=== PATIENT | female | born 1975 | race African-American/Black ===

== ENCOUNTER 2019-02-21 09:43 | Observation (INO) ==
[2019-02-21] MEDS ORDERED: ASPIRIN PO ONE (10:27)
--- NOTE | 2019-02-21 10:45 | Diag Imaging Result Doc PS360 ---
EXAM: CHEST-1 VIEW 02/21/2019 HISTORY: CP TECHNIQUE: AP portable upright at 1035 COMMENT: The inspiration is less optimal than on 07/05/2018. Considering differences in projection and inspiration there has been no significant change. The heart size appears slightly enlarged. IMPRESSION: Borderline cardiomegaly. Electronically signed by Dick Davis 02/21/2019 10:42 AM
--- NOTE | 2019-02-21 10:46 | EKG Report ---
Test Performed on : 02/21/2019 09:46:42 AM Test Reason : CP Blood Pressure : / mmHG Vent. Rate : 102 BPM Atrial Rate : 102 BPM P-R Int : 162 ms QRS Dur : 092 ms QT Int : 374 ms P-R-T Axes : 049 -04 021 degrees QTc Int : 487 ms Sinus tachycardia. Possible Left atrial enlargement Borderline ECG When compared with ECG of 27-OCT-2018 15:49, No significant change was found Unconfirmed Result
[2019-02-21] MEDS ORDERED: NITROGLYCERIN TOP ONE (10:47)
[2019-02-21 11:34] LABS: BASO# 0.04 X1000 (0.0-0.2); BASO% 0.4 % (0.0-0.8); EOS# 0.05 X1000 (0.0-0.7); EOS% 0.5 % (0.0-10.0); HEMOGLOBIN 12.1 g/dL (12.0-16.0); IMM GRAN# 0.02 X1000 (0.0-0.04); IMM GRAN% 0.2 % (0.0-0.5); LYMPH# 3.06 X1000 (1.2-3.4); LYMPH% 32.4 % (20.5-51.1); MCH 30.5 PG (27-31); MCV 98.2 FL (81-99); MONO# 0.92 X1000 (0.11-0.59); MONO% 9.7 % (1.7-9.3); MPV 10.9 FL (7.4-10.4); NEUT# 5.36 X1000 (1.4-6.5); NEUT% 56.8 % (42.2-75.2); PLT 230 X1000 (130-400); RBC 3.97 XMIL (4.2-5.4); WBC 9.45 X1000 (4.8-10.8)
[2019-02-21 11:40] LABS: INR 0.95; PROTIME 12.8 Seconds (11.0-16.0)
[2019-02-21 11:41] LABS: PTT 29.4 Seconds (22.3-41.8)
[2019-02-21 11:53] LABS: AGAP 10; CHLORIDE 106 mmol/L (98-107); POTASSIUM 3.9 mmol/L (3.5-5.1); SODIUM 144 mmol/L (136-145); TCO2 28 mmol/L (25-35)
[2019-02-21 11:54] LABS: ALB/GLOB RATIO 1.4; ALBUMIN 4.1 g/dL (3.5-5.0); ALKALINE PHOSPHATASE 92 U/L (32-104); BUN 9 mg/dL (8-22); CALCIUM 9.6 mg/dL (8.8-10.2); COSMO 284; CREATININE 0.9 mg/dL (0.5-0.9); ESTIMATED GFR > 60; GLUCOSE 75 mg/dL (70-104); GOT 21 U/L (10-30); GPT 11 U/L (10-36); TOTAL BILIRUBIN 0.35 mg/dL (0.20-1.00); TOTAL PROTEIN 7.1 g/dL (6.3-8.3)
[2019-02-21] MEDS ORDERED: MORPHINE IV ONE (12:26)
--- NOTE | 2019-02-21 13:40 | EKG Report ---
Test Performed on : 02/21/2019 1:35:03 PM Test Reason : CP Blood Pressure : / mmHG Vent. Rate : 092 BPM Atrial Rate : 092 BPM P-R Int : 166 ms QRS Dur : 090 ms QT Int : 398 ms P-R-T Axes : 050 -05 017 degrees QTc Int : 492 ms Sinus rhythm. with occasional premature ventricular complexes. Prolonged QT Abnormal ECG When compared with ECG of 21-FEB-2019 09:46, (Unconfirmed) premature ventricular complexes. are now present Unconfirmed Result
[2019-02-21 13:47] LABS: CK INDEX 3.3 (0.0-2.5); CK-MB 11.89 ng/mL (0.0-5.0)
[2019-02-21] MEDS ORDERED: HEPARIN IV ONE (14:14)
[2019-02-21] MEDS ORDERED: HEPARIN IV PRN (14:14)
[2019-02-21] MEDS ORDERED: HEPARIN 25,000 UNITS/D5W 25,000 UNIT/250 ML IV.SOLN IV SCH (14:15)
[2019-02-21] MEDS ORDERED: LASIX IV ONE (14:18)
[2019-02-21] MEDS ORDERED: LIPITOR PO SCH (14:30)
[2019-02-21] MEDS ORDERED: PRINIVIL PO SCH (14:30)
--- NOTE | 2019-02-21 14:50 | PROVIDER DOCUMENTATION ---
This chart was entered by Jesica Cho Scribe, acting as scribe for Pankaj Rich MD. HPI-Chest Pain - General Chief Complaint: Chest Pain Stated Complaint: CHEST PAIN SENT BY DR Liang Seen by Provider: 02/21/19 10:22 Source: patient Allergies/Adverse Reactions: Patient Allergies Allergy/AdvReac Type Severity Reaction Status Date / Time No Known Allergies Allergy Verified 09/21/18 08:11 Home Medications: Home Medication List Medication Instructions Recorded Confirmed Last Taken Type Lisinopril/Hydrochlorothiazide 1 each PO QAM 01/19/14 02/21/19 02/20/19 History [Lisinopril-Hctz 20-12.5 mg Tab] 1 EACH Metformin HCl [Metformin HCl ER] 750 mg PO BID 01/19/14 02/21/19 02/20/19 History 750 MG Meloxicam [Mobic] 7.5 mg PO DAILY PRN PRN #15 tablet 04/28/16 02/21/19 02/20/19 Rx 7.5 MG Prednisolone Sod Phosphate 15 mg PO DAILY 6 Days bottle 04/21/17 02/21/19 02/20/19 Rx [Orapred Liquid] 15 MG Etodolac [Lodine] 400 mg PO BID CC #20 tab 07/17/18 02/21/19 02/20/19 Rx 400 MG Naproxen Sodium [Anaprox Ds] 550 mg PO Q12H PRN #20 tab 02/10/19 02/21/19 02/20/19 Rx 550 MG - History of Present Illness-CP Nature of Presenting Problem: 44 yobf presents to the ed with c/o chest pressure, palpitations, SOB, cough with left arm tingling. pt sts acute onset was 0130am this morning and has been constant since onset. pain does wax and wane in severity. pt went to see dr serra pcp and was sent to ed. pt on exam is nontoxic appearance Location: reports: substernal Chest Pain Radiation: reports: arms (left arm with tingling) Quality of Pain: reports: pressure (chest) Severity in ED: moderate Onset/Duration: this morning (0130am) Timing: still present, improving Context/Activities at Onset: reports: sleep Modifying Factors: improves with: nothing. worse with: movement (lying on rt side makes pain worse) Associated Symptoms: reports: shortness of breath. denies: abdominal pain, back pain, diaphoresis, dizziness, nausea, vomiting Nitro Today/Relief: no nitro taken today Aspirin Treatment Today: 325 mg x 1, provided by ED Prior Chest Pain/Cardiac Workup: reports: no prior chest pain Similar Symptoms Previously?: No Recently Seen Here or By Another Healthcare Provider: Yes (dr serra pcp) Review of Systems - Adult - REVIEW OF SYSTEMS - ADULT Constitutional: denies: chills, fever Eyes: denies: blurred vision, double vision Ears, Nose, Mouth & Throat: reports: no symptoms reported Cardiovascular: reports: see HPI, chest pain, palpitations. denies: syncope Respiratory: reports: see HPI, cough, shortness of breath Gastrointestinal: denies: abdominal pain, diarrhea, nausea, poor appetite, vomiting Genitourinary: reports: no symptoms reported Musculoskeletal: denies: back pain, neck pain Integumentary: reports: no symptoms reported Neurological: reports: see HPI, paresthesia (left arm). denies: dizziness/vertigo, headache/migraines Psychiatric: reports: no symptoms reported Endocrine: reports: no symptoms reported Hematologic/Lymphatic: reports: no symptoms reported Allergic/Immunologic: reports: no symptoms reported All Other Systems: Reviewed and Negative Past History - Adult - PAST MEDICAL HISTORY-ADULT Review of Records: reports: Old Records Reviewed, Nursing Assessment Review, Medications Reviewed, Social history reviewed & non-contributory. Major Childhood Illnesses: reports: denies history Cardiovascular: reports: HTN Respiratory: reports: asthma, bronchitis Gastrointestinal: reports: denies history Obstetrical/Gynecological: reports: denies history Genitourinary: reports: denies history Musculoskeletal: reports: denies history Neurological: reports: denies history Psychiatric: reports: denies history Endocrine/Immune: reports: Diabetes Diabetes Type: Type 2 Other Conditions: reports: denies history - PRIOR SURGERIES/PROCEDURES Surgical/Procedure History: reports: tonsillectomy, cholecystectomy - PRIOR HOSPITALIZATIONS Prior Hospitalizations: reports: none - IMMUNIZATION STATUS Childhood Immunizations: UTD Flu Vaccine: See Nurse Assessment - FAMILY HISTORY Family History: sudden (mother), HTN - SOCIAL HISTORY Smoking: cigarettes, less than 1 pack/day Provider spent 3-5 mins advising pt. on dangers of tobacco.: Discussed manners to quit use, and f/u contacts for add'l counseling. Substance Use: denies Alcohol Use Frequency: never Living Situation: family Physical Exam-General - PHYSICAL EXAM-ADULT Initial Vital Signs Reviewed: Yes - CONSTITUTIONAL General Appearance: appears well, alert, mild distress, obese - EYES Eyes: PERRL/EOMI, pink conjunctivae - HEAD, EARS, NOSE, MOUTH & THROAT HENMT: moist mucous membranes, dental decay - NECK Neck: non-tender, full range of motion, supple, normal inspection - RESPIRATORY Respiratory: chest non-tender, lungs clear, normal breath sounds - CARDIOVASCULAR Cardiovascular: normal peripheral pulses, tachycardia (105) - CHEST (BREASTS) Chest/Breast: deferred - GASTROINTESTINAL (ABDOMEN) Abdominal Exam: normal bowel sounds, non tender, soft - GENITOURINARY Female Genitalia/Pelvic Exam: deferred Rectal Exam: deferred Hemoccult Exam: deferred - LYMPHATIC Lymphatic: no adenopathy - MUSCULOSKELETAL Back Exam: normal inspection Extremity: normal range of motion, non-tender, normal capillary refill, pelvis stable - SKIN Integumentary: normal color, normal turgor, warm/dry - NEUROLOGIC Neurologic: grossly normal - PSYCHIATRIC Psych/Mental Status: normal mood/affect, normal thought content, normal thought process, oriented x 3 - HEART Score HEART Score: History: Slightly Suspicious HEART Score: ECG: Non-Specific Repolarization Disturbance/LBBB/PM HEART Score: Age: < or = 45 Years HEART Score: Risk Factors for Atherosclerotic Disease: 1 or 2 Risk Factors HEART Score: Troponin: < or = Normal Limit Total HEART Score:: 2 Progress - PLAN OF CARE/RESULTS Progress/Plan/Lab Results: Vital Signs - 8 hr 02/21/19 09:52 02/21/19 09:59 02/21/19 10:02 Temperature 98.9 F Pulse Rate 105 H 103 H Respiratory Rate 20 16 Blood Pressure 169/99 164/110 169/117 O2 Sat by Pulse Oximetry 98 100 100 02/21/19 10:17 02/21/19 10:30 02/21/19 10:32 Temperature Pulse Rate 103 H 102 H 105 H Respiratory Rate 22 24 17 Blood Pressure 166/110 160/103 O2 Sat by Pulse Oximetry 100 99 99 02/21/19 10:47 02/21/19 11:05 02/21/19 11:17 Temperature Pulse Rate 111 H 97 H 98 H Respiratory Rate 14 16 19 Blood Pressure 157/97 112/81 O2 Sat by Pulse Oximetry 99 98 100 02/21/19 11:46 02/21/19 12:00 02/21/19 12:02 Temperature Pulse Rate 92 H 91 H 100 H Respiratory Rate 20 20 18 Blood Pressure 152/105 132/92 O2 Sat by Pulse Oximetry 97 97 97 02/21/19 12:17 02/21/19 12:45 02/21/19 13:00 Temperature Pulse Rate 100 H 90 98 H Respiratory Rate 23 21 15 Blood Pressure O2 Sat by Pulse Oximetry 97 95 97 02/21/19 13:01 02/21/19 13:15 02/21/19 13:30 Temperature Pulse Rate 98 H 94 H 89 Respiratory Rate 23 19 18 Blood Pressure 117/82 O2 Sat by Pulse Oximetry 96 96 97 02/21/19 13:45 02/21/19 14:00 02/21/19 14:01 Temperature Pulse Rate 90 104 H 109 H Respiratory Rate 17 15 15 Blood Pressure 135/104 O2 Sat by Pulse Oximetry 99 100 99 Laboratory Results - last 24 hr 02/21/19 02/21/19 02/21/19 10:37 11:13 11:13 WBC 9.45 RBC 3.97 L Hgb 12.1 Hct 39.0 MCV 98.2 MCH 30.5 MCHC 31.0 L RDW Std Deviation 13.0 Plt Count 230 MPV 10.9 H Immature Gran % (Auto) 0.2 Neut % (Auto) 56.8 Lymph % (Auto) 32.4 [place] % (Auto) 9.7 H Eos % (Auto) 0.5 Baso % (Auto) 0.4 Immature Gran # (Auto) 0.02 Neut # (Auto) 5.36 Lymph # (Auto) 3.06 [place] # (Auto) 0.92 H Eos # (Auto) 0.05 Baso # (Auto) 0.04 PT INR PTT (Actin FS) Sodium 144 Potassium 3.9 Chloride 106 Carbon Dioxide 28 Anion Gap 10 BUN 9 Creatinine 0.9 Estimated GFR/1.73 m2 > 60 BUN/Creatinine Ratio 10 Glucose 75 Calculated Osmolality 284 Calcium 9.6 Magnesium 2.0 Total Bilirubin 0.35 AST 21 ALT 11 Alkaline Phosphatase 92 Creatine Kinase 359 H Creatine Kinase Index 3.3 H CK-MB (CK-2) 11.89 H Troponin T [id number] Pept Total Protein 7.1 Albumin 4.1 Globulin 3.0 Albumin/Globulin Ratio 1.4 02/21/19 02/21/19 02/21/19 11:13 11:13 11:13 WBC RBC Hgb Hct MCV MCH MCHC RDW Std Deviation Plt Count MPV Immature Gran % (Auto) Neut % (Auto) Lymph % (Auto) [place] % (Auto) Eos % (Auto) Baso % (Auto) Immature Gran # (Auto) Neut # (Auto) Lymph # (Auto) [place] # (Auto) Eos # (Auto) Baso # (Auto) PT 12.8 INR 0.95 PTT (Actin FS) 29.4 Sodium Potassium Chloride Carbon Dioxide Anion Gap BUN Creatinine Estimated GFR/1.73 m2 BUN/Creatinine Ratio Glucose Calculated Osmolality Calcium Magnesium Total Bilirubin AST ALT Alkaline Phosphatase Creatine Kinase Creatine Kinase Index CK-MB (CK-2) Troponin T 0.142 H [id number] Pept 960 H Total Protein Albumin Globulin Albumin/Globulin Ratio Orders Category Date Time Status Daily Weights 0500 Care 02/21/19 14:14 Active EKG PRN for Chest Pain ORDERED Care 02/21/19 14:19 Active NPO Diet 02/22/19 00:01 Active CHEST-1 VIEW [RAD] Stat Exams 02/21/19 10:27 Completed BNP [PRO B-NATRIURETIC PEPTIDE] Stat Lab 02/21/19 11:13 Completed C REACTIVE PROT QUANT [CHEM] Routine Lab 02/21/19 14:22 Received CBC WITH DIFF [HEME] DAILY Lab 02/22/19 06:00 Uncollected CBC WITH DIFF [HEME] DAILY Lab 02/23/19 06:00 Uncollected CBC WITH DIFF [HEME] DAILY Lab 02/24/19 06:00 Uncollected CBC WITH DIFF [HEME] Stat Lab 02/21/19 11:13 Completed CK PROFILE [SP CHEM] Stat Lab 02/21/19 14:32 Received CK PROFILE [SP CHEM] Timed Lab 02/21/19 20:15 Ordered COMPREHENSIVE METABOLIC PANEL [CHEM] Stat Lab 02/21/19 11:13 Completed Cardiac Profile [CK PROFILE] [SP CHEM] Stat Lab 02/21/19 10:37 Completed LIPID PROFILE W/CALC LDL [LIPIDS] Routine Lab 02/22/19 06:00 Ordered MAGNESIUM [CHEM] Stat Lab 02/21/19 11:13 Completed PROTIME WITH INR [COAG] Stat Lab 02/21/19 11:13 Completed PROTIME WITH INR [COAG] Stat Lab 02/21/19 14:32 Received PTT HEPARIN PROTOCOL [COAG] Q6HR Lab 02/21/19 20:00 Uncollected PTT HEPARIN PROTOCOL [COAG] Q6HR Lab 02/22/19 02:00 Uncollected PTT HEPARIN PROTOCOL [COAG] Q6HR Lab 02/22/19 08:00 Uncollected PTT HEPARIN PROTOCOL [COAG] Q6HR Lab 02/22/19 14:00 Uncollected PTT [COAG] Stat Lab 02/21/19 11:13 Completed PTT [COAG] Stat Lab 02/21/19 14:32 Received SED RATE [HEME] Routine Lab 02/21/19 14:32 Received TROPONIN T Stat Lab 02/21/19 11:13 Completed TROPONIN T Stat Lab 02/21/19 14:32 Received TROPONIN T Timed Lab 02/21/19 20:15 Ordered ATORVAstatin [Lipitor] Med 02/21/19 14:30 Active 40 mg PO DAILY Aspirin Med 02/21/19 10:27 Discontinued 325 mg PO NOW ONE Aspirin Med 02/22/19 09:00 Active 81 mg PO DAILY Carvedilol [Coreg] Med 02/21/19 14:30 Active 6.25 mg PO Q12HR Furosemide [Lasix] Med 02/21/19 14:18 Discontinued 40 mg IV ONCE ONE Furosemide [Lasix] Med 02/22/19 09:00 Active 40 mg PO DAILY Heparin Med 02/21/19 14:14 Discontinued See Dose Instructions IV NOW ONE Heparin Med 02/21/19 14:14 Active See Dose Instructions IV PRN PRN Heparin 25,000 Units/D5w Med 02/21/19 14:15 Active 25,000 unit in 250 ml IV 12 unit/kg/hr LISINOpril [Prinivil] Med 02/21/19 14:30 Active 20 mg PO DAILY Morphine Med 02/21/19 12:26 Discontinued 2 mg IV NOW ONE Nitroglycerin Med 02/21/19 10:47 Discontinued 1 inch TOP NOW ONE EKG [EKG] Routine Ther 02/22/19 06:00 Ordered EKG [EKG] Stat Ther 02/21/19 10:27 Draft EKG [EKG] Stat Ther 02/21/19 12:[address] Avendano has seen pt in ED, done a echo. Hospitalists to admit overnight, pt will be transferred to tomorrow for cardiac cath Result Diagrams: 02/21/19 11:13 02/21/19 11:13 - EKG 1 Time of EKG reading by physician:: 09:57 EKG Read and Signed by:: Pankaj Rich EKG Interpretation (*Must complete 3 of following elements*): Normal (borderline) Rate: 102 Rhythm: sinus tachycardia [place]: normal QRS: normal NM Interval: normal ST Wave: normal 2 Time of EKG reading by physician:: 13:38 EKG Read and Signed by:: Pankaj Rich EKG Interpretation (*Must complete 3 of following elements*): Abnormal Rate: 92 Rhythm: SR, occ PVC QRS: normal ST Wave: normal Prior EKG Comparison: unchanged from prior (2 hrs ago) Comments: prolonged QT - XRAY 1 XRAY: Bilateral XRAY Study: Chest Impression: See EMR Report (EXAM: CHEST-1 VIEW 02/21/2019 HISTORY: CP TECHNIQUE: AP portable upright at 1035 COMMENT: The inspiration is less optimal than on 07/05/2018. Considering differences in projection and inspiration there has been no significant change. The heart size appears slightly enlarged. IMPRESSION: Borderline cardiomegaly. Electronically signed by Dick Davis 02/21/2019 10:42 AM 02/21/19 1042 Interpreting Physician: Dick Davis MD Dictated Date/Time: 02/21/19 1042 cc: Pankaj Rich MD; Ginette Serra) - CONSULTS/PCP/HOSPITALIST Notification #1 *Consult/PCP/Hospitalist*: spoke with golden with dr avendano cardio Time Discussed: 12:52 Reason/Comments: phone consult Consult Disposition: Will see in ED Departure - Departure Date of Disposition Decision: 02/21/19 Time of Disposition Decision: 14:50 DIAGNOSIS: Tobacco use disorder, Non-STEMI (non-ST elevated myocardial infarction) Disposition: ADMITTED INPATIENT 09 Certified Medical Emergency: Emergent Condition: Stable Additional Freetext Instructions: ED Follow Up Instructions: You have been treated by a care provider in the Emergency Department. These instructions are being provided to you so you can have an understanding of how to care for yourself upon discharge. Upon discharge from the Emergency Department, you are responsible for making arrangements for follow-up care by a physician of your choice. Take all prescribed medications as directed. Return to the Emergency Department immediately for any new or worsening symptoms. You may call the Physician Referral phone number at [phone] to obtain a list of Physicians who are taking new patients. Referrals and Follow-Ups: Ginette Serra CRNP [Primary Care Provider] - - Critical Care Note This patient required my direct & personal management of CC.: No Attestation - Physician/ GRAYSON Attestation Patient care was provided by Advanced Practice Provider:: No The physician spent face to face time with patient:: Yes Advanced Practice Provider documentation review:: Supervising physician onsite and consulted in the evaluation and care of this patient. The physician did have a face to face encounter with the patient. This chart was documented by the indicated scribe, (Jesica Cho Scribe) and accurately reflects the services I performed and decisions made by me, Pankaj Rich MD, as attested by the provider's signature.
[2019-02-21 15:07] LABS: INR 1.02; PROTIME 13.5 Seconds (11.0-16.0)
[2019-02-21 15:08] LABS: PTT 31.2 Seconds (22.3-41.8)
--- NOTE | 2019-02-21 15:10 | CARDIOLOGY CONSULTATION ---
DATE: 02/21/2019 REASON FOR CONSULTATION: Cardiology was consulted for chest pain, abnormal cardiac enzymes, non-Q wave myocardial infarction. HISTORY OF PRESENT ILLNESS: Ms. Víctor Crespo is a 44-year-old lady who has history of hypertension, gout, asthma, and comes with complaints of having severe chest pain which woke her up early this morning. She describes it as retrosternal with some radiation and tingling to the left arm. This was associated with shortness of breath. She went to her primary physician's office, and was brought to the emergency room. Electrocardiogram in the emergency room revealed sinus tachycardia. Cardiac enzymes were abnormal. Repeat electrocardiogram revealed sinus tachycardia. At the time of my examination, the patient was pain-free. However, she had to be given nitroglycerin and morphine to relieve her symptoms. There was no associated nausea. There is no vomiting. REVIEW OF SYSTEMS: A 14-point review of systems was done. GI: There is no history of nausea, vomiting, diarrhea. There is no history of hematemesis or melena. Central Nervous System: No focal weakness to suggest a CVA or TIA. Genitourinary: There is no dysuria or hematuria. PAST MEDICAL HISTORY: 1. Hypertension. 2. Borderline diabetes in the past. 3. Gout. 4. Asthma. SOCIAL HISTORY: She is a smoker. Smokes about a pack of cigarettes a day. There is no history of alcohol or illicit drug abuse. FAMILY HISTORY: Has strong family history of coronary artery disease. Her mother in her 30s of myocardial infarction. The patient was a 9-year-old at that time. PHYSICAL EXAMINATION: Vital Signs: Blood pressure was 120/80. Heart: First and second heart sounds were heard. Lungs: There were a few scattered wheeze. Abdomen: Soft, obese, nontender. There was no guarding or rigidity. Bowel sounds were heard. Central Nervous System: Alert and oriented. Moving all 4 extremities. Extremities: Mild pedal edema. IMAGING: Chest x-ray revealed cardiomegaly, otherwise there were no overt signs of heart failure. LABORATORY DATA: Sodium 144, potassium 3.9, BUN 9, creatinine 0.9. CK abnormal at 359, with a CK index of 3.3, CK-MB of 11.89. Troponin abnormal at 0.142. ProBNP 960. WBC 9.45, hemoglobin 12.1, hematocrit 39, platelet count of 230. ASSESSMENT AND PLAN: Ms. Víctor Crespo is a 44-year-old lady with history of hypertension, gout, borderline diabetes in the past, strong family history of coronary artery disease, and asthma, comes with complaints of severe chest pain radiating to the left arm. The patient's abnormal troponin is suggestive of non-Q wave myocardial infarction. She had an echocardiogram done (please see detailed echocardiogram), ejection fraction 20% to 25%. I had a detailed discussion with the patient. Given this, she would need to be evaluated to rule out obstructive coronary artery disease with a left heart catheterization. Risks, benefits, and alternatives were explained. The patient will be set up for left heart catheterization. In the interim, we will start her on aspirin, intravenous heparin per standard protocol. She has left ventricular dysfunction, which is new. No previous echocardiogram that we have. She has history of hypertension, borderline diabetes as well. She is on lisinopril. Will continue the lisinopril, start her on Coreg 6.25 mg twice daily. We will also put her on Lasix. Her blood sugars were normal today. She had been on metformin a few years back. Currently, she is not taking any metformin. We will monitor her blood sugars. Will also put her on Lipitor 40 mg daily. Thank you for the consult. Will follow hospital course. cc: Rahat Avendano MD
--- NOTE | 2019-02-21 15:36 | ED EKG INTERP ---
This chart was entered by Jesica Cho Scribe, acting as scribe for Pankaj Rich MD. EKG Interpretation - EKG Time of EKG reading by physician:: 13:38 EKG Read and Signed by:: Pankaj Rich EKG Interpretation (*Must complete 3 of following elements*): Abnormal Rate: 92 Rhythm: sinus rhythm with occ pvc [place]: normal QRS: PVC's GA Interval: normal ST Wave: normal Comments: prolonged QT Attestation - Physician/ GRAYSON Attestation Patient care was provided by Advanced Practice Provider:: No The physician spent face to face time with patient:: Yes Advanced Practice Provider documentation review:: Supervising physician onsite and consulted in the evaluation and care of this patient. The physician did have a face to face encounter with the patient. This chart was documented by the indicated scribe, (Jesica Cho Scribe) and accurately reflects the services I performed and decisions made by me, Pankaj Rich MD, as attested by the provider's signature.
[2019-02-21] MEDS ORDERED: ZOFRAN IV PRN (16:05)
[2019-02-21] MEDS ORDERED: MOBIC PO PRN (16:05)
--- NOTE | 2019-02-21 16:10 | HISTORY AND PHYSICAL ---
PRIMARY CARE PHYSICIAN: RAMO Garduno CHIEF COMPLAINT: Chest pain. HISTORY OF PRESENTING ILLNESS: This is a 44-year-old female who presents to [facility] with complaints of chest pain that is left-sided and radiate to her left shoulder and down her left arm with numbness and tingling. Also had some mild shortness of breath. Denied any nausea. States the pain started around 1:30 a.m. this morning and had been intermittent since then, but states that it felt like a" pressure" sitting on her chest. She did go to see her primary care physician today who sent her to the emergency room for evaluation. Her first set of cardiac enzymes showed a creatine kinase of 359, CK-MB of 11.89, and a troponin of 0.142. Her EKG on arrival showed sinus tachycardia at 102. ER physician spoke with cardiology who came down, saw the patient in the emergency room and did a bedside echocardiogram and we will admit the patient for further evaluation and treatment with Cardiology consultation. PAST MEDICAL HISTORY: Hypertension, diabetes type 2, asthma, COPD. PAST SURGICAL HISTORY: Cholecystectomy, bilateral tubal ligation, tonsillectomy. FAMILY HISTORY: Reviewed and noncontributory. SOCIAL HISTORY: She currently lives with family. Smokes daily. Has been a pack-a-day smoker, but has cut back to less than a half a pack a day. Denied any alcohol or illicit drug use. ALLERGIES: She has no known drug allergies. HOME MEDICATIONS: We will hold her metformin 750 mg p.o. b.i.d. and her naproxen sodium 550 mg p.o. q.12 p.r.n. We will continue her Lodine 400 mg p.o. b.i.d., lisinopril/hydrochlorothiazide 20/12.5 one p.o. q.a.m., Mobic 7.5 mg p.o. daily p.r.n. and Orapred liquid 15 mg p.o. daily. LABORATORY DATA: Showed a white blood cell count of 9.45, hemoglobin 12.1, hematocrit 39, platelets 230,000. PT and INR of 12.8 and 0.95. Sodium 144, potassium 3.9, chloride 106, CO2 28, BUN of 9, creatinine 0.9, glucose 75, magnesium of 2. Creatine kinase was 359, CK-MB of 11.89, troponin 0.142 with a proBNP of 960. Chest x-ray showed borderline cardiomegaly. EKG on arrival showed sinus tachycardia at 102. REVIEW OF SYSTEMS: She denied any fever, chills, blurred vision, dizziness. She had left-sided chest pain that radiated to her left shoulder and down her left arm with numbness and tingling, shortness of breath, denied a cough, denied any abdominal pain, constipation, diarrhea, burning or hurting with urination. PHYSICAL EXAMINATION: On arrival she had a temperature of 98.9 degrees, a pulse of 105, respirations 20, blood pressure 169/99, saturating 98% on room air. GENERAL: This is a 44-year-old, morbidly obese, female who is lying in the bed and answers questions appropriately. HEENT: Normocephalic, atraumatic. Normal ENT inspection. Oropharynx and nares are clear. EYES: Pupils are equal, round, reactive to light and accommodation. Extraocular movements are intact. NECK: Normal inspection, normal range of motion. LUNGS: Clear to auscultation bilaterally with equal lung expansion and chest wall movement. HEART: With regular rate and rhythm. No murmurs, rubs, or gallops. ABDOMEN: Soft, nontender, nondistended. Bowel sounds are present x4 quadrants. MUSCULOSKELETAL: She had 5/5 strength x4 extremities. NEUROLOGICAL: The cranial nerves 2-12 appear grossly intact. ASSESSMENT: 1. Chest pain. 2. Non-STEMI. 3. Hypertension. 4. Diabetes type 2- Now off medication. 5. Gout affecting right knee PLAN: 1. She will be admitted to a PVC unit, held n.p.o. after midnight, but can have a healthy heart diet up till then. We will consult Cardiology. 2. We will do serial cardiac enzymes. Check a lipid profile. 3. She has been placed on a heparin protocol. 4. Continue home medications as previously identified. 5. Recheck a CBC, BMP in the a.m. and daily weights. 6. Further orders after seen by attending and by sales and service consultant. Dictated by RAMO Fisher for Fredy Marshall MD cc: RAMO Fisher MD Johnna Langford, CRNP I agree with most components of history, physical, assessment and plan. A separate addendum has been dictated. PITO
[2019-02-21] MEDS: COREG PO SCH ×2 (16:41→20:37)
[2019-02-21 16:54] LABS: CK INDEX 3.7 (0.0-2.5); CK-MB 11.93 ng/mL (0.0-5.0)
[2019-02-21] MEDS ORDERED: LODINE PO SCH (17:00)
[2019-02-21] MEDS ORDERED: NITROGLYCERIN TOP PRN (17:00)
[2019-02-21 17:59] LABS: AGAP 10; BUN 7 mg/dL (8-22); CALCIUM 9.4 mg/dL (8.8-10.2); CHLORIDE 103 mmol/L (98-107); COSMO 280; CREATININE 0.9 mg/dL (0.5-0.9); ESTIMATED GFR > 60; GLUCOSE 110 mg/dL (70-104); POTASSIUM 3.8 mmol/L (3.5-5.1); SODIUM 141 mmol/L (136-145); TCO2 28 mmol/L (25-35)
--- NOTE | 2019-02-21 19:29 | HISTORY AND PHYSICAL ---
ADDENDUM: This is an addendum to the history and physical dictated by nurse practitioner. I agree with most components of history, physical, assessment and plan. In brief, Ms. Crespo is a 44-year-old lady with a past medical history of essential hypertension, non- insulin-dependent diabetes mellitus type 2. No longer on any medication, active tobacco abuse, right knee gouty arthritis, who came in with chief complaints of left-sided chest pressure radiating to left shoulder associated with shortness of breath of about 12 hours duration. In the emergency room, her EKG did not have ST-T changes and it was normal sinus rhythm. However, the troponins were elevated to 0.14. She was given a stat aspirin. Cardiology and hospitalist team was consulted for further management. SUBJECTIVE: At the time of my evaluation, her chest pain has become significantly better after topical nitroglycerin paste. She is denying any more shortness of breath or palpitation. VITALS: Temperature of 97.9 degrees, pulse 94, respiratory rate 14, blood pressure 120/90. She is saturating 98% room air. PHYSICAL EXAMINATION: GENERAL: Does not appear in any acute distress oral cavity is moist. LUNGS: Air entry bilaterally equal. No wheeze, rhonchi, or crackles. CARDIOVASCULAR: S1, S2 normal. S3 is heard. No murmur, rub, or gallop. ABDOMEN: Soft, nontender. EXTREMITY: No lower extremity edema. NEUROLOGIC: She is alert and oriented x3. LABS: Suggestive of normal CBC, normal coagulation. She does have elevated troponin, which are still rising. ASSESSMENT AND PLAN: Acute coronary syndrome, likely non-ST elevation myocardial infarction. She has risk factors of positive family history, active tobacco, essential hypertension, and morbid obesity. Continue intravenous heparin drip, aspirin, beta emilio, lisinopril and atorvastatin. I will appreciate further Cardiology recommendation about need for coronary angiography to evaluate the culprit lesion. I will give nitroglycerin as needed for chest pain. I will hold any nonsteroidal anti-inflammatory drugs at the moment considering her acute coronary syndrome. DISPOSITION: Continue to monitor patient in telemetry unit. Plan of care discussed with her. All of her questions have been answered. cc: Fredy Marshall MD
--- NOTE | 2019-02-21 19:30 | ECHO REPORT ---
ORDER DATE: 02/21/2019 INDICATION: Myocardial infarction, non Q-wave. M-MODE MEASUREMENTS: Left ventricle end diastole: 5.9. Left ventricle end systole: 5.5. Posterior wall: 0.8. Interventricular septum: 1.0. Left atrium: 4.4. Aortic root: 2.7. SUMMARY OF 2-DIMENSIONAL IMAGIN. The study is very difficult. The left ventricular chamber appears to be markedly dilated. The global left ventricular systolic function is significantly impaired, estimated visually at 20% to 25%. The wall motion abnormality is global. 2. The aortic valve is grossly unremarkable. Color flow mapping unremarkable. 3. The mitral valve shows a mild to moderate degree of regurgitation. 4. Pulsed wave Doppler of mitral inflow shows a pseudonormal pattern with a relatively taller E- wave than the A-wave and a short distillation time. That indicates elevation of the left atrial pressure. There is significant diastolic dysfunction. 5. The tricuspid valve shows a mild degree of regurgitation. Pulmonary pressure cannot be properly evaluated. It is estimated on this study at 20 mmHg. 6. The pulmonic valve is unremarkable. Color flow mapping shows a mild degree of regurgitation. 7. The right-sided chambers are mildly enlarged. 8. The left atrium is moderately enlarged. 9. There is no pericardial effusion. SUMMARY: This study shows: 1. A technically very difficult study. 2. Dilated left ventricle with significantly impaired systolic function, ejection fraction of 20% to 25%. 3. No significant valvular abnormality noted. 4. There is significant diastolic dysfunction. 5. 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 Clinical correlation recommended. cc: MD Bindu Morgan PA
[2019-02-21] MEDS: TYLENOL PO PRN (20:36)
[2019-02-21] MEDS ORDERED: NITROGLYCERIN SL PRN (23:07)
[2019-02-21 23:31] LABS: CK INDEX 3.2 (0.0-2.5); CK-MB 9.88 ng/mL (0.0-5.0)
[2019-02-22] MEDS: TYLENOL PO PRN (04:24)
--- NOTE | 2019-02-22 05:23 | EKG Report ---
Test Performed on : 02/21/2019 6:19:57 PM Test Reason : chest pain Blood Pressure : / mmHG Vent. Rate : 091 BPM Atrial Rate : 091 BPM P-R Int : 170 ms QRS Dur : 090 ms QT Int : 388 ms P-R-T Axes : 043 -11 010 degrees QTc Int : 477 ms Normal sinus rhythm. Normal ECG When compared with ECG of 21-FEB-2019 13:35, (Unconfirmed) premature ventricular complexes. are no longer present Nonspecific T wave abnormality now evident in Lateral leads Confirmed by Katie MATTHEWS, Avinash Cooney ([id number]) on 02/23/2019 8:06:21 PM
[2019-02-22 05:58] LABS: BASO# 0.02 X1000 (0.0-0.2); BASO% 0.2 % (0.0-0.8); EOS# 0.18 X1000 (0.0-0.7); EOS% 1.8 % (0.0-10.0); HEMATOCRIT 36.8 % (37.0-47.0); HEMOGLOBIN 11.4 g/dL (12.0-16.0); LYMPH# 3.09 X1000 (1.2-3.4); LYMPH% 31.5 % (20.5-51.1); MCH 30.3 PG (27-31); MCV 97.9 FL (81-99); MONO# 0.91 X1000 (0.11-0.59); MONO% 9.3 % (1.7-9.3); MPV 11.5 FL (7.4-10.4); NEUT# 5.61 X1000 (1.4-6.5); NEUT% 57.2 % (42.2-75.2); PLT 220 X1000 (130-400); RBC 3.76 XMIL (4.2-5.4); RDW 13.1 % (11.5-14.5); WBC 9.81 X1000 (4.8-10.8)
[2019-02-22 06:29] LABS: CHOLESTEROL 121 mg/dL (0-200); HDL 37 mg/dL (45-65); LDL 66 mg/dL; TRIGLYCERIDES 90 mg/dL (35-135); VLDL 18 mg/dL
[2019-02-22 07:31] VITALS: BP 96/75
[2019-02-22] MEDS ORDERED: HEPARIN 25,000 UNITS/D5W 25,000 UNIT/250 ML IV.SOLN IV SCH (07:32)
--- NOTE | 2019-02-22 08:06 | DISCHARGE SUMMARY ---
ADMISSION DATE: 02/21/2019 DISCHARGE DATE: 02/22/2019 DISCHARGE DISPOSITION: The patient is currently being transferred to [facility] for left heart catheterization and coronary angiography. DISCHARGE DIAGNOSES: 1. Non ST elevation myocardial infarction. 2. Anginal chest pain. 3. Likely acute congestive heart failure though previous echocardiograms were not available, systolic in nature. OTHER DIAGNOSES: 1. History of morbid obesity. 2. History of essential hypertension. 3. History of gout affecting right knee. 4. History of diabetes mellitus, not on any medications anymore. 5. History of asthma. 6. History of active tobacco abuse. CURRENT MEDICATIONS: 1. Nitroglycerin 0.4 mg sublingual every 5 minutes as needed for chest pain. 2. Heparin drip intravenous for acute coronary syndrome. 3. Carvedilol 6.25 mg every 12 hours. 4. Aspirin 81 mg daily. 5. Furosemide 40 mg daily. 6. Atorvastatin 40 mg daily. 7. Lisinopril 20 mg daily. 8. Ondansetron 4 mg IV every 4 hours as needed for nausea and vomiting. DISCHARGE EXAMINATION: Vital Signs: Current vitals temperature 98.3 degrees, pulse 82, respiratory 23, blood pressure 103/59, and saturating 94% on room air. General: Morbidly obese not in acute distress. Oral cavity is moist. Lungs: Air entry bilaterally equal. No wheeze or rhonchi. Mild inspiratory crackles infrascapular region. Heart: S1, S2 normal. S3 gallop is audible. No murmur or rub. Abdomen: Obese, soft, and nontender. Negative hepatojugular reflex. Extremities: No bilateral lower extremity edema. Neurologic: She is alert and oriented x3. LABORATORY: Significant labs during hospital admission and discharge, hemoglobin 11.4 and platelets 220,000. Latest PTT is 69. Potassium 3.8, BUN 7, and creatinine 0.7. Troponin on admission was 0.142. The current troponin at 5:00 in the morning was 0.213. SIGNIFICANT MICROBIOLOGY DURING HOSPITAL ADMISSION: None. IMAGING DURING HOSPITAL ADMISSION: Chest x-ray on admission had borderline cardiomegaly. Echocardiogram had dilated left ventricle with impaired systolic function with ejection fraction of 20 to 25 percent. There was significant diastolic dysfunction. Electrocardiogram on admission had sinus tachycardia, possible left atrial enlargement without any ST-T changes. Electrocardiogram later on had normal sinus rhythm. Otherwise it was a normal ECG. CONSULTATIONS DURING HOSPITAL ADMISSION: Cardiology Dr. Avendano. HOSPITAL COURSE SUMMARY: Ms. Crespo is a 44 year old lady who came in on 02/21/2019 with chief complaints of chest heaviness on the left side and chest pressure radiating to left shoulder associated with shortness of breath of about 12 hours duration. She had prior history of essential hypertension, active tobacco abuse, morbid obesity and positive family history of mother having myocardial infarction. On arrival, the EKG did not have ST-T changes, and it was normal sinus rhythm. However, the troponin's were elevated to 0.142. She was given stat aspirin and was started on intravenous heparin drip, and was admitted for NSTEMI. Most of the hospital course was unremarkable, and after nitroglycerin and treatment for NSTEMI in the morning time, she was chest pain free. The patient would be transferred to [facility] for need for coronary angiography. TIME SPENT: More than 30 minutes were spent in preparing discharge summary. cc: Fredy Marshall MD
--- NOTE | 2019-02-22 08:36 | EKG Report ---
Test Performed on : 02/22/2019 06:02:27 AM Test Reason : chest pain Blood Pressure : / mmHG Vent. Rate : 075 BPM Atrial Rate : 075 BPM P-R Int : 168 ms QRS Dur : 090 ms QT Int : 430 ms P-R-T Axes : 054 007 032 degrees QTc Int : 480 ms Normal sinus rhythm. Nonspecific T wave abnormality Abnormal ECG When compared with ECG of 21-FEB-2019 18:19, (Unconfirmed) No significant change was found Confirmed by Katie MATTHEWS, Avinash Cooney ([id number]) on 02/23/2019 8:09:44 PM
[2019-02-22] MEDS ORDERED: ORAPRED LIQUID PO SCH ×2 (09:00)
[2019-02-22] MEDS ORDERED: PRINZIDE 20/12.5MG PO SCH (09:00)
[2019-02-22] MEDS ORDERED: ASPIRIN PO SCH ×2 (09:00)
[2019-02-22] MEDS ORDERED: LASIX PO SCH (09:00)
== END 2019-02-22 08:17 | disposition short-term general hospital (02) ==
LOC: ED 09:43 → 2N 09:43
PROVIDERS: ATTEND Internal Medicine